=== PATIENT | male | born 1955 | race Caucasian/White ===

== ENCOUNTER → 2016-11-17 | Outpatient (REF) | payer MEDICARE, MEDICAID ==
[2016-11-17 15:48] LABS: ALBUMIN 3.8 GM/DL (3.2-5.2); ALBUMIN/GLOBULIN RATIO 0.97 (1.00-1.93); ALKALINE PHOSPHATASE 146 U/L (45-117); ALT/SGPT 32 U/L (12-78); ANION GAP 10 MEQ/L (8-16); AST/SGOT 39 U/L (15-37); BILIRUBIN,TOTAL 0.5 MG/DL (0.2-1.0); BLOOD UREA NITROGEN 13 MG/DL (7-18); CARBON DIOXIDE LEVEL 27 MEQ/L (21-32); CHLORIDE LEVEL 101 MEQ/L (98-107); CHOLESTEROL LEVEL 301 MG/DL (<200); GLOMERULAR FILTRATION RATE > 60.0 (>49); GLUCOSE, FASTING 103 MG/DL (80-110); SODIUM LEVEL 138 MEQ/L (136-145); TOTAL PROTEIN 7.7 GM/DL (6.4-8.2); TRIGLYCERIDES LEVEL 330 MG/DL (<150)
[2016-11-20 00:08] LABS: %CD3+CD4+CD8- 30.3 % (Not Estab.); %CD3+CD4-CD8+ 39.6 % (Not Estab.); %CD3+CD4-CD8- 1.2 % (Not Estab.); ABS CD3+CD4+CD8+ 44 /uL (Not Estab.); ABS CD3+CD4+CD8- 667 /uL (Not Estab.); ABS CD3+CD4-CD8+ 871 /uL (Not Estab.); ABS CD3+CD4-CD8- 26 /uL (Not Estab.); CD4/CD8 NYSDOH RATIO 0.77 (Not Estab.); Eosinophils 2 % (.); HCT 39.7 % (37.5-51.0); HGB 13.6 g/dL (12.6-17.7); Monocytes 7 % (.); Neutrophils 68 % (.); WBC 9.4 x10E3/uL (3.4-10.8)
== END ==
LOC: M SFHCPLAZ 12:19
PROVIDERS: ATTEND Internal Medicine Infectious Disease
DX: B20 Human immunodeficiency virus [HIV] disease (principal); E78.00 Pure hypercholesterolemia, unspecified
CPT/HCPCS: 36415; 80053; 80061; 81001; 86360; 87536; G0463